=== PATIENT | female | born 1950 | race Caucasian/White ===

== ENCOUNTER 2017-09-19 10:33 | Emergency (ER) | payer OTHER, BC ==
[2017-09-19 10:47] VITALS: TEMP 98.6; O2SAT 97
--- NOTE | 2017-09-19 10:55 | EDPHY ---
H & P Stated Complaint: Int abd pain x 1 wk;constipation w/diarrhea post laxative, near sync on Fri Time Seen by Provider: 09/19/17 10:54 - Personal History Current Tetanus Diphtheria and Acellular Pertussis (TDAP): Yes Tetanus Vaccine Date: within 10 years - Medical/Surgical History Hx Asthma: No Hx Chronic Respiratory Disease: No Hx Diabetes: No Hx Cardiac Disease: No Hx Renal Disease: No Hx Cirrhosis: No Hx Alcoholism: No Hx HIV/AIDS: No Hx Splenectomy or Spleen Trauma: No Other PMH: hypothyroid - Social History Smoking Status: Never smoked Constitutional: Initial Vital Signs Temperature (C) 37 C 09/19/17 10:42 Heart Rate 76 09/19/17 10:42 Respiratory Rate 18 09/19/17 10:42 Blood Pressure 128/78 H 09/19/17 10:42 O2 Sat (%) 97 09/19/17 10:42 O2 Delivery Mode Room Air Allergies/Adverse Reactions: bacitracin [From Neosporin ([id number])] Allergy (Verified 02/07/15 15:59) bacitracin zinc [From Neosporin ([id number])] Allergy (Verified 02/07/15 15: 59) epinephrine Allergy (Verified 02/07/15 15:59) hydrocodone Allergy (Verified 02/07/15 15:59) latex Allergy (Verified 02/07/15 15:59) payam Allergy (Verified 02/07/15 15:59) neomycin sulfate [From Neosporin ([id number])] Allergy (Verified 02/07/15 15: 59) polymyxin B [From Neosporin ([id number])] Allergy (Verified 02/07/15 15:59) pomegranate Allergy (Verified 02/07/15 15:59) Home Medications: Medication Instructions Recorded Synthroid 02/06/15 Medical Decision Making ED Course/Re-evaluation: CHIEF COMPLAINT: Diarrhea, constipation, HISTORY OF PRESENT ILLNESS: The patient is a 67 y/o female complaining of constipation, diarrhea, and abdominal discomfort onset 10 days ago. She has a history of intestinal discomfort which typically resolves in 1 to 2 days with a diet of clear liquids and light food. She has had constipation, diarrhea, and abdominal pain for the past 10 days and it has not resolved with a diet of clear liquids and light food. The abdominal pain is localized to the left lower quadrant. She denies vomiting, nausea, or any other associated symptoms. Her last colonoscopy was 5 years ago and was normal. REVIEW OF SYSTEMS: A 10 point review of systems was performed and is negative with the exception of the elements mentioned in the history of present illness. PHYSICAL EXAM: HR, BP, O2 Sat, RR. Temp noted General Appearance: Alert, well hydrated, appropriate, and non-toxic appearing. Head: Atraumatic without scalp tenderness or obvious injury Eyes: Pupils equal, round, reactive to light and accommodation, EOMI, no trauma , no injection. Ears: Clear bilaterally, no perforation, normal landmarks Nose: Atraumatic, no rhinorrhea, clear. Throat: There is no erythema or exudates, no lesions, normal tonsils, mucus membranes moist. Neck: Supple, nontender, no lymphadenopathy. Respiratory: No retractions, no distress, no wheezes, and no accessory muscle use. Lungs are clear to auscultation bilaterally. Cardiovascular: Regular rate and rhythm, no murmurs, rubs, or gallops. Good capillary refill all extremities. Gastrointestinal: Tenderness over the sigmoid colon. Abdomen is soft, non- distended, no masses, no rebound, no guarding, no peritoneal signs. Musculoskeletal: Normal active ROM of all extremities, atraumatic. Neurological: Alert, appropriate, and interactive. The patient has normal DTRs and non-focal cranial nerves, motor, sensory, and cerebellar exam. Skin: No rashes, good turgor, no nodules on palpation. Past medical history: Intestinal discomfort Past surgical history: Laparoscopy Family history: Non-contributory Social history: , lives in [place], at bedside DIAGNOSTICS/PROCEDURES/CRITICAL CARE TIME: Study: CT of the abdomen Indication: Diarrhea Results: CT scan of the body parts was obtained. The results of the study are normal. The study was read by the radiologist, Dr. Denny. I viewed the images myself on the PACS system. DIFFERENTIAL DIAGNOSIS: The differential diagnosis for the patient's abdominal pain included but was not limited to ovarian cyst, pelvic inflammatory disease, ovarian torsion, urinary tract infection, ectopic , cholecystitis, and appendicitis. MEDICAL DECISION MAKING: The patient is a 67 y/o female complaining of abdominal pain, diarrhea, and constipation for the last 10 days. She has a history of similar issues that resolved within a day or two. She denies vomiting , nausea or any other associated symptoms. She has tenderness over the sigmoid colon. Plan for labs and CT. 1238: Labs and CT are normal. Plan for discharge with referral to gastroenterology for unimproved symptoms. Return precautions given. Patient agrees to this course of action. - Data Points Laboratory Results: Laboratory Results 09/19/17 11:40 09/19/17 11:40 09/19/17 09/19/17 11:40 11:40 WBC 4.62 10^3/uL 10^3/uL (3.80-9.50) RBC 4.79 10^6/uL 10^6/uL (4.18-5.33) Hgb 14.2 g/dL g/dL (12.6-16.3) Hct 41.2 % % (38.0-47.0) MCV 86.0 fL fL (81.5-99.8) MCH 29.6 pg pg (27.9-34.1) MCHC 34.5 g/dL g/dL (32.4-36.7) RDW 13.6 % % (11.5-15.2) Plt Count 232 10^3/uL 10^3/uL (150-400) MPV 10.7 fL fL (8.7-11.7) Neut % (Auto) 50.0 % % (39.3-74.2) Lymph % (Auto) 37.0 % % (15.0-45.0) [place] % (Auto) 7.8 % % (4.5-13.0) Eos % (Auto) 4.3 % % (0.6-7.6) Baso % (Auto) 0.9 % % (0.3-1.7) Nucleat RBC Rel Count 0.0 % % (0.0-0.2) Absolute Neuts (auto) 2.31 10^3/uL 10^3/uL (1.70-6.50) Absolute Lymphs (auto) 1.71 10^3/uL 10^3/uL (1.00-3.00) Absolute Monos (auto) 0.36 10^3/uL 10^3/uL (0.30-0.80) Absolute Eos (auto) 0.20 10^3/uL 10^3/uL (0.03-0.40) Absolute Basos (auto) 0.04 10^3/uL 10^3/uL (0.02-0.10) Absolute Nucleated RBC 0.00 10^3/uL 10^3/uL (0-0.01) Immature Gran % 0.0 % % (0.0-1.1) Immature Gran # 0.00 10^3/uL 10^3/uL (0.00-0.10) Sodium 144 mEq/L mEq/L (134-144) Potassium 3.8 mEq/L mEq/L (3.5-5.2) Chloride 105 mEq/L mEq/L (97-110) Carbon Dioxide 25 mEq/l mEq/l (22-31) Anion Gap 14 mEq/L mEq/L (8-16) BUN 12 mg/dL mg/dL (7-23) Creatinine 0.9 mg/dL mg/dL (0.6-1.0) Estimated GFR > 60 Glucose 87 mg/dL mg/dL (70-100) Calcium 9.5 mg/dL mg/dL (8.5-10.4) Total Bilirubin 0.7 mg/dL mg/dL (0.1-1.4) Conjugated Bilirubin 0.0 mg/dL mg/dL (0.0-0.5) Unconjugated Bilirubin 0.7 mg/dL mg/dL (0.0-1.1) AST 43 IU/L IU/L (14-46) ALT 48 IU/L IU/L (9-52) Alkaline Phosphatase 68 IU/L IU/L (38-126) Total Protein 7.6 g/dL g/dL (6.3-8.2) Albumin 4.4 g/dL g/dL (3.5-5.0) Lipase 139 IU/L IU/L (23-300) Medications Given: Discontinued Medications Sodium Chloride (Ns) 1,000 mls @ 0 mls/hr IV EDNOW ONE; Wide Open PRN Reason: Protocol Stop: 09/19/17 11:32 Last Admin: 09/19/17 11:51 Dose: 1,000 mls Ketorolac Tromethamine (Toradol) 30 mg IVP EDNOW ONE Stop: 09/19/17 11:32 Last Admin: 09/19/17 11:51 Dose: 30 mg Departure - Departure Disposition: Home, Routine, Self-Care Clinical Impression: Diarrhea Qualifiers: Diarrhea type: unspecified type Qualified Code(s): R19.7 - Diarrhea, unspecified Condition: Good Instructions: Acute Diarrhea (ED) Additional Instructions: 1. Follow-up with Dr. Davey, gastroenterology for unimproved symptoms in 2-3 days. 2. Return to the ED for worsening of condition. Referrals: Roxy Castro MD [Primary Care Provider] - As per Instructions Shorty Davey MD [[facility] [place] Primary Care Provider] - As per Instructions Report Scribed for: Israel Cabezas Report Scribed by: Angie Goff Date of Report: 09/19/17 Time of Report: 11:38
[2017-09-19] MEDS ORDERED: NS 1,000 ML IV ONE (11:31)
[2017-09-19] MEDS ORDERED: KETOROLAC 30 MG/1 ML SDV IVP ONE (11:31)
[2017-09-19 11:55] LABS: ADD DIFF? NO; ADD MORPH? NO; ADD SCAN? NO; ATYPICAL LYMPHOCYTE FLAG 0 (0-99); FRAGMENT RBC FLAG 0 (0-99); HEMATOCRIT 41.2 % (38.0-47.0); HEMOGLOBIN 14.2 g/dL (12.6-16.3); LEFT SHIFT FLG 0 (0-99); LIPEMIA HEMOLYSIS FLAG 90 (0-99); MEAN CELL HEMOGLOBIN 29.6 pg (27.9-34.1); MEAN CELL HEMOGLOBIN CONCENTR. 34.5 g/dL (32.4-36.7); MEAN PLATELET VOLUME 10.7 fL (8.7-11.7); PLATELET CLUMPS FLAG 0 (0-99); PLATELET COUNT 232 10^3/uL (150-400); RED BLOOD CELL COUNT 4.79 10^6/uL (4.18-5.33); RED CELL DISTRIBUTION WIDTH 13.6 % (11.5-15.2)
[2017-09-19 12:01] LABS: ALANINE AMINOTRANSFERASE 48 IU/L (9-52); ALBUMIN 4.4 g/dL (3.5-5.0); ALKALINE PHOSPHATASE 68 IU/L (38-126); ANION GAP 14 mEq/L (8-16); ASPARTATE AMINOTRANSFERASE 43 IU/L (14-46); BILIRUBIN,TOTAL 0.7 mg/dL (0.1-1.4); BILIRUBIN-UNCONJUGATED 0.7 mg/dL (0.0-1.1); CALCIUM 9.5 mg/dL (8.5-10.4); CARBON DIOXIDE 25 mEq/l (22-31); CHLORIDE 105 mEq/L (97-110); CREATININE 0.9 mg/dL (0.6-1.0); GLOMERULAR FILTRATION RATE > 60; GLUCOSE 87 mg/dL (70-100); POTASSIUM 3.8 mEq/L (3.5-5.2); SODIUM 144 mEq/L (134-144); TOTAL PROTEIN 7.6 g/dL (6.3-8.2)
[2017-09-19] MEDS ORDERED: IOPAMIDOL (ISOVUE-300) 100 ML BTL ONE (12:04)
[2017-09-19 12:58] VITALS: BP 134/71; PULSE 59; RESP 16
== END 2017-09-19 12:55 | disposition home or self-care (01) ==
PROC: 3E0337Z Introduction of Electrolytic and Water Balance Substance into Peripheral Vein, Percutaneous Approach (ICD-10-PCS; principal; 2017-09-19)
DX: R19.7 Diarrhea, unspecified (principal); E86.9 Volume depletion, unspecified; Z91.040 Latex allergy status
CPT/HCPCS: 74177; 96361; 96374; 99285; J1885; Q9967